=== PATIENT | male | born 1970 | race Two or more races ===

== ENCOUNTER 2022-01-03 15:47 | Emergency (ER) | payer OTHER ==
[~2022-01-03] VITALS: Ht 177.8 cm; Wt 111.1 kg
[2022-01-03] MEDS ORDERED: COZAAR25 MG PO (16:08)
== END 2022-01-03 18:18 | disposition home or self-care (01) ==
LOC: ER 15:47
DX: S01.81XA Laceration without foreign body of other part of head, initial encounter (principal); X58.XXXA Exposure to other specified factors, initial encounter; Y93.9 Activity, unspecified; Y92.9 Unspecified place or not applicable

== ENCOUNTER 2022-01-13 08:31 | Emergency (ER) | payer OTHER ==
[~2022-01-13] VITALS: Ht 177.8 cm; Wt 111.1 kg
[~2022-01-13 08:31] MED LIST: COZAAR25 MG PO
== END 2022-01-13 09:11 | disposition home or self-care (01) ==
LOC: ER 08:31
DX: Z48.02 Encounter for removal of sutures (principal); I10 Essential (primary) hypertension